=== PATIENT | female | born 1945 | race Caucasian/White ===

== ENCOUNTER 2016-09-28 10:57 | Emergency (ER) | payer MEDICARE, OTHER ==
--- NOTE | ~2016-09-28 | CT2 ---
[facility] A Service of [facility] & [facility] RADIOLOGY TEXT RESULTS PATIENT: XOCHILT ACEVEDO LOCATION: [facility] : 49 UNIT #: [id number] AGE: [address]: Liya Leary MD SEX: F ORDER DR: [id number] [facility] [address] [place], [place] [address] [id number] E MR#: [id number] #: [id number] NAME: XOCHILT ACEVEDO. : 1945 SEX: F STUDY DATE/TIME: 09/28/2016 14:19 UNIT: [facility] ROOM: STUDY DESCRIPTION: CT Abd and Pelv W Cont Attending Physician: Liya Leary M.D. Ordering Physician: Liya Leary M.D. Primary Care Physician: Bernardino Bauman M.D. MEDICAL IMAGING REPORT This report is preliminary unless electronic signature is present EXAM CT of the abdomen and pelvis with IV contrast media 09/28/2016 HISTORY Diarrhea since July 2015, vomiting for 2 days. TECHNIQUE Axial imaging of the abdomen and pelvis obtained with IV contrast media. This CT exam was performed with one or more of the following radiation dose reduction techniques: automatic exposure control, adjustment of mA and/or kV according to patient size, and iterative reconstruction. FINDINGS Lung bases are clear. Scans through the liver are normal. Gallbladder is contracted. Spleen is normal. Adrenal glands are normal. Pancreas appears unremarkable. Left kidney is atrophic with marked cortical thinning. There are at least 3 stones identified within the left kidney. These are nonobstructing. The largest of these is in a midpole nava measuring up to about 6 mm in diameter. 2 tiny stones are seen in the upper pole and a stone measuring about 4 mm is seen in the lower pole. There is an upper pole hypodense lesion likely a cyst. The right kidney is remarkable for a hypodense sharply circumscribed lesion in the lower pole likely a cyst measuring 11 mm. No hydronephrosis or hydroureter is seen. Appendix in this patient is normal. No dilated or thickened loops of bowel are seen. There is no evidence of obstruction. Scans through the pelvis show no pelvic masses or fluid collections. There are a few small nodes in the ischial rectal fossa. On the left the largest of these measures about a centimeter in size. These are of questionable significance. Bone windows are reviewed. The patient has multilevel degenerative disc STS. [facility] A Service of [facility] & [facility] RADIOLOGY TEXT RESULTS PATIENT: XOCHILT ACEVEDO LOCATION: [facility] : 49 UNIT #: [id number] AGE: [address]: Liya Leary MD SEX: F ORDER DR: disease in the lumbar spine. There is a Schmorl node at the L4 level. CONCLUSION 1. Relatively atrophic left kidney with multiple stones. 2. Bilateral renal cysts. 3. No acute findings in the abdomen or pelvis. 4. Small incidental nodes in the ischial rectal fossa of questionable significance. 5. Multilevel degenerative disc disease in the lumbar spine. Dictated by... Dandre Acosta M.D. THIS IS AN ELECTRONICALLY VERIFIED REPORT Dandre Acosta M.D. at 10/01/2016 5:09 PM MIRIAM/pradeep TD: 09/28/2016 18:45 JOB #: [id number] MEDICAL IMAGING REPORT COPY
[~2016-09-28 10:57] MED LIST: ATENOLOL PO; CELEXA PO; CELEXA20 M1 PO; FLEXERIL PO; FLOVENT7.9 GM; GABAPENTIN300 M2 PO; HYDROCHLOROTHIA25 MG PO; IBUPROFEN PO; LEVOXYL175 MC1 PO; LOTENSIN40 MG PO; NORCO1 TAB 10/3 PO; PROAIR HFA8.5 GM
[2016-09-28 11:04] LABS: BASOPHIL# 0.1 X10e3 (0-0.3); BASOPHIL% 0.7 % (0-2.5); DIFF IND NO; EOSINOPHIL# 0.2 X10e3 (0-0.7); EOSINOPHIL% 2.5 % (0.0-7.0); HEMOGLOBIN 10.1 gm/dL (12.0-16.0); LYMPHOCYTE# 0.9 X10e3 (1.0-3.5); LYMPHOCYTE% 11.1 % (17.0-45.0); MEAN CELL VOLUME 91.8 FL (83-96); MEAN CORPUSCULAR HEMOGLOBIN 29.1 PG (28-34); MEAN CORPUSCULAR HGB CONC 31.7 g/dL (30-36); MEAN PLATELET VOLUME 7.1 FL (6.5-11.5); MONOCYTE# 1.2 X10e3 (0-1.0); NEUTROPHIL# 5.8 X10e3 (1.5-7.1); NEUTROPHIL% 70.7 % (40-75); PLATELET COUNT 309 X10e3 (140-420); RED BLOOD COUNT 3.48 X10e (3.90-5.30); RED CELL DISTRIBUTION WIDTH 13.8 % (11.0-15.5); WHITE BLOOD COUNT 8.2 X10e3 (4.0-10.5)
[2016-09-28 11:29] LABS: ALBUMIN SERUM 3.2 g/dL (3.5-5.0); BILIRUBIN, DIRECT 0.1 mg/dL (0.0-0.2); BILIRUBIN,INDIRECT 0.4 mg/dL (0.0-0.9); BILIRUBIN,TOTAL 0.5 mg/dL (0.2-2.0); BUN/CREATININE RATIO 13.63; CALCIUM SERUM 9.6 mg/dL (8.4-10.2); CREATININE SERUM 1.1 mg/dL (0.6-1.4); GLOM FILT RATE Estimated 52.3 mL/min (>60); PROTEIN TOTAL SERUM 7.4 g/dL (6.0-8.3)
[2016-09-28 11:30] LABS: URINE SOURCE CLEAN CATCH
[2016-09-28 11:31] LABS: POTASSIUM 2.6 mmol/L (3.5-5.1)
[2016-09-28 11:36] LABS: URINE APPEARANCE TURBID; URINE BILIRUBIN NEG (NEG); URINE BLOOD 1+ (NEG); URINE COLOR DK YELLOW; URINE GLUCOSE NEG (NEG); URINE KETONE NEG (NEG); URINE LEUKOCYTE ESTERASE 3+ (NEG); URINE NITRATE NEG (NEG); URINE PROTEIN 1+ (NEG); URINE SPECIFIC GRAVITY 1.018 (1.003-1.035); URINE UROBILINOGEN 0.2 MG/DL (NEG)
[2016-09-28 11:39] LABS: CULTURE INDICATED? YES; URINE SQUAMOUS EPITHELIAL CELL FEW /[HPF]; UWBCS1 AUWI INNUM (0-5)
[2016-09-28 11:47] LABS: U HYALINE CASTS AUWI 0-2 /[LPF]
[2016-09-28 11:48] LABS: URBCS1 AUWI 0-2 /[HPF] (0-2); URINE BACTERIA AUWI 1+ (NEGATIVE)
[2016-09-28] MEDS ORDERED: DIPHENOXYLATE/A1 TA1 PO (12:14)
[2016-09-28] MEDS ORDERED: ATENOLOL-CHLOR1 EACH PO (12:15)
[2016-09-28] MEDS ORDERED: METRONIDAZOLE250 MG PO (12:16)
== END 2016-09-28 16:16 | disposition home or self-care (01) ==
LOC: CED 10:57
PROVIDERS: Emergency Medicine
DX: N39.0 Urinary tract infection, site not specified (principal); R19.7 Diarrhea, unspecified; E87.6 Hypokalemia; Z88.8 Allergy status to other drugs, medicaments and biological substances
CPT/HCPCS: 36415; 74177; 80048; 80076; 81003; 82150; 83690; 85025; 87086; 87186; 96361; 96374; 99284; J2405; Q9967

== ENCOUNTER → 2016-10-03 | Outpatient (CLI) | payer MEDICARE, BC ==
[~2016-10-03] MED LIST changes: +ATENOLOL-CHLOR1 EACH PO; +DIPHENOXYLATE/A1 TA1 PO; +METRONIDAZOLE250 MG PO
[2016-10-03 15:38] LABS: HEMATOCRIT 31.7 % (35.0-45.0); MEAN CELL VOLUME 92.1 FL (83-96); MEAN CORPUSCULAR HEMOGLOBIN 29.1 PG (28-34); MEAN CORPUSCULAR HGB CONC 31.6 g/dL (30-36); MEAN PLATELET VOLUME 7.1 FL (6.5-11.5); RED BLOOD COUNT 3.44 X10e (3.90-5.30); RED CELL DISTRIBUTION WIDTH 13.8 % (11.0-15.5); WHITE BLOOD COUNT 14.4 X10e3 (4.0-10.5)
[2016-10-03 16:23] LABS: ALBUMIN SERUM 3.5 g/dL (3.5-5.0); BILIRUBIN,TOTAL 0.6 mg/dL (0.2-2.0); BUN/CREATININE RATIO 8.33; CREATININE SERUM 1.2 mg/dL (0.6-1.4); GLOM FILT RATE Estimated 47.3 mL/min (>60); POTASSIUM 3.1 mmol/L (3.5-5.1)
== END | disposition home or self-care (01) ==
LOC: CLAB 15:18
PROVIDERS: Internal Medicine
DX: R19.7 Diarrhea, unspecified (principal)
CPT/HCPCS: 36415; 80053; 85027; 86140